=== PATIENT | female | born 2000 | race Caucasian/White ===

== ENCOUNTER 2022-09-08 22:19 | Emergency (ER) | payer SELFPAY ==
[~2022-09-08] VITALS: Ht 160 cm; Wt 61.4 kg
--- NOTE | 2022-09-08 22:19 | NUR ---
PT ASHLEY ALS. TAKEN TO ER BED 11
[2022-09-08 22:20] VITALS: BP 117/57; PULSE 95; RESP 11; TEMP 97.1; O2SAT 99
--- NOTE | 2022-09-08 22:30 | NUR ---
Pt BIB by ALS. Found in the parking lot. By standers saw her smoking and suddenly collapse. She denies taking any drugs. ALS given Narcan IV @2203 and followed by 1mg Intranasal. Pt had laceration scars on both thighs and arms and bruise on her left elbow. Conscious alert and oriented X4
[2022-09-08 22:55] LABS: BASOPHILS # (AUTO) 0.1 K/uL (0.00-0.22); BASOPHILS % (AUTO) 0.9 % (0.0-2.0); EOSINOPHILS # (AUTO) 0.1 K/uL (0-0.4); EOSINOPHILS % (AUTO) 2.3 % (0.0-4.0); HEMATOCRIT 37.8 % (36-48); HEMOGLOBIN 12.6 g/dL (12.0-16.0); LYMPHOCYTES # (AUTO) 2.2 K/uL (2.5-16.5); LYMPHOCYTES % (AUTO) 35.5 % (20.5-51.1); MEAN CORPUSCULAR HEMOGLOBIN 29 pg (27-31); MEAN CORPUSCULAR HGB CONC 33 g/dL (33-37); MEAN CORPUSCULAR VOLUME 88.4 fL (80-94); MONOCYTES # (AUTO) 0.5 K/uL (0.8-1.0); MONOCYTES % (AUTO) 7.4 % (1.7-9.3); NEUTROPHILS # (AUTO) 3.3 K/uL (1.8-7.7); NEUTROPHILS % (AUTO) 53.9 % (42.2-75.2); PLATELET COUNT (AUTO) 207 K/uL (140-450); RED BLOOD CELL COUNT(AUTO) 4.28 MIL/uL (4.20-5.40); RED CELL DISTRIBUTION WIDTH 13.1 % (11.6-13.7); WHITE BLOOD COUNT (AUTO) 6.2 K/uL (4.8-10.8)
[2022-09-08] MEDS ORDERED: NACL 0.9% 1,000 ML IV ONE (23:15)
--- NOTE | 2022-09-08 23:23 | NUR ---
Accu check done with 401mg/dl reading.
--- NOTE | 2022-09-08 23:29 | NUR ---
Pt went to CT assisted by restorative care technician by [facility].
--- NOTE | 2022-09-08 23:29 | NUR ---
pt to CT via [facility]
[2022-09-08 23:33] LABS: ACETAMINOPHEN < 0.5 ug/ml (10-30); ALBUMIN 3.2 g/dL (3.4-5.0); ANION GAP 7.1 (8-16); ASPARTATE AMINOTRANSFERASE 23 U/L (15-37); CARBON DIOXIDE 31.3 mmol/L (21-32); CHLORIDE 102 mmol/L (98-107); GFR ARICAN-AMERICAN 88 mL/min (>90); POTASSIUM 3.4 mmol/L (3.5-5.1); SALICYLATE < 2.8 mg/dL (2.8-20.0); SODIUM SERUM 137 mmol/L (136-145); TOTAL BILIRUBIN 0.4 mg/dL (0.0-1.0); UREA NITROGEN, BLOOD 15 mg/dL (7-18)
[2022-09-08 23:35] LABS: GLUCOSE 400 mg/dL (74-106)
--- NOTE | 2022-09-09 00:50 | NUR ---
Received a call from Pt's name Stalin. Telephone number taken and noted. Addendum: 09/09/22 at 0255 by [facility] phone number. [phone]. Named Stalin.
--- NOTE | 2022-09-09 01:05 | NUR ---
Pt is asleep with rise and fall of chest noted.
--- NOTE | 2022-09-09 02:50 | NUR ---
Pt is sleeping comfortably with chest rise and fall noted.
[2022-09-09] MEDS ORDERED: NALO4SPR NS (02:59)
--- NOTE | 2022-09-09 03:03 | NUR ---
Stalin has being called to supervisor opening and picking her .
--- NOTE | 2022-09-09 03:46 | NUR ---
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
--- NOTE | 2022-09-09 03:47 | NUR ---
Pt is comfortably sleeping with rise and fall of chest noted.
--- NOTE | 2022-09-09 05:06 | NUR ---
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
--- NOTE | 2022-09-09 05:47 | NUR ---
Called the and on his way to pick her up.
--- NOTE | 2022-09-09 05:50 | NUR ---
Patient discharged with v/s stable. Written and verbal after care instructions given and explained. Patient verbalized understanding. Ambulatory with steady gait. All questions addressed prior to discharge. Advised to follow up with PMD.
[2022-09-09 05:57] VITALS: BP 115/74; PULSE 62; RESP 18; TEMP 97.1; O2SAT 97
== END 2022-09-09 05:50 | disposition home or self-care (01) ==
LOC: MED 22:19
DX: T50.994A Poisoning by other drugs, medicaments and biological substances, undetermined, initial encounter (principal); R73.9 Hyperglycemia, unspecified; F90.9 Attention-deficit hyperactivity disorder, unspecified type; Y92.89 Other specified places as the place of occurrence of the external cause
CPT/HCPCS: 36415; 70450; 71045; 80053; 82550; 84484; 84702; 85025; 93005; 96360; 99285; G0480; G0482; J7030; Q0092

== ENCOUNTER 2022-09-22 08:28 | Emergency (ER) | payer SELFPAY ==
[~2022-09-22] VITALS: Ht 157.5 cm; Wt 56.7 kg
[~2022-09-22 08:28] MED LIST: NALO4SPR NS
[2022-09-22 08:35] VITALS: BP 117/71; PULSE 100; RESP 20; TEMP 98; O2SAT 100
--- NOTE | 2022-09-22 09:18 | NUR ---
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 PT WAS UNRESPONSIVE W/AGONAL BREATHING ON SCENE, PT WAS RECEIVED NASAL NARCAN 4MG AND IV NARCAN 1MG; TOTAL OF 5MG. PER EMS PT AOX3 UPON ARRIVAL TO ED. PT ANSWERES ALL QUESTIONS CLEARLY, AOX4, AMBULATORY. PT STATES SHE IS A [employer] US[employer]. NAD, SAFETY MAINTAINED, ON SLAG DUMPER, CALL LIGHT WITHIN REACH. PMH: DM, BIPOLAR ALLERGY: NKA
--- NOTE | 2022-09-22 09:21 | NUR ---
PT STATES SHE WANTS TO LEAVE, REFUSED TO GIVE URINE. PT REQUESTED IV LOCK PLACED BY MEDICS REMOVED. AWARE.
== END 2022-09-22 09:39 | disposition home or self-care (01) ==
LOC: MED 08:28
DX: F15.90 Other stimulant use, unspecified, uncomplicated (principal); T40.2X1A Poisoning by other opioids, accidental (unintentional), initial encounter; E11.9 Type 2 diabetes mellitus without complications; I10 Essential (primary) hypertension; Z79.4 Long term (current) use of insulin; Z79.899 Other long term (current) drug therapy; Y92.89 Other specified places as the place of occurrence of the external cause
CPT/HCPCS: 81002; 99283